=== PATIENT | male | born 1960 | race Caucasian/White ===

== ENCOUNTER → 2016-12-29 | Outpatient (CLI) | payer BC ==
--- NOTE | 2016-12-29 16:04 | DI ---
LEFT WRIST, 12/29/2016 3:07 PM: Clinical History: Acute left wrist pain. Previous Exam: None at this facility. 3 views are submitted. There is no acute soft tissue, osseous, or joint abnormality. There is a 1 mm bony density along the dorsal surface of the triquetrum bone along its inferior margin, consistent wi th previous injury. There is also a 2 mm bony density on the volar aspect in proximity to the lunate bone seen on the lateral view consistent with old injury. There are bony densities surrounding the fi rst carpometacarpal joint along with joint space narrowing. These changes are probably related to old injury along with arthritic disease. Reading: There is no acute fracture or dislocation.
== END ==
LOC: MOB RAD 15:21
DX: M25.532 Pain in left wrist (principal)
CPT/HCPCS: 73110